=== PATIENT | female | born 1995 | race Caucasian/White ===

== ENCOUNTER 2018-04-17 22:47 | Emergency (ER) | payer BC ==
[2018-04-18] MEDS ORDERED: Bacitracin Zinc 1 Packet ONE (00:02)
[2018-04-18] MEDS ORDERED: Adacel (T-DAP) 0.5 ML VIAL ONE (00:13)
== END 2018-04-18 00:30 | disposition home or self-care (01) ==
LOC: ERS 22:47
DX: S01.81XA Laceration without foreign body of other part of head, initial encounter (principal); Z23 Encounter for immunization; W22.8XXA Striking against or struck by other objects, initial encounter; Y93.02 Activity, running
CPT/HCPCS: 12011; 90471; 90715